=== PATIENT | male | born 1955 | race Two or more races ===

== ENCOUNTER → 2019-03-18 | Outpatient (CLI) | payer OTHER ==
[~2019-03-18] MED LIST: LOVA40TA2 PO; PANT40TA5 PO
[2019-03-18 08:45] LABS: INTERNATIONAL NORMALIZED RATIO 0.95 (0.93-1.1)
[2019-03-18 08:47] LABS: ALANINE AMINOTRANSFERASE 31 U/L (12-78); ALBUMIN 3.9 g/dL (3.4-5.0); ANION GAP 6 mmol/L (5-15); CHLORIDE 107 mmol/L (98-107); CREATININE 0.94 mg/dL (0.7-1.3); MEAN CORPUSCULAR HEMOGLOBIN 30.1 pg (27.5-34.5); MEAN CORPUSCULAR HGB CONC 33.5 g/dL (33.2-36.2); MEAN CORPUSCULAR VOLUME 90.1 fL (81-97); PLATELET COUNT 287 x10^3/uL (130-400); RED BLOOD COUNT 5.23 x10^6/uL (4.38-5.82); RED CELL DISTRIBUTION WIDTH 14.2 % (9.4-14.8)
[2019-03-18 08:50] LABS: ALKALINE PHOSPHATASE 109 U/L (45-117); BILIRUBIN,TOTAL 0.9 mg/dL (0.2-1.0); TOTAL PROTEIN 7.7 g/dL (6.4-8.2)
[2019-03-18 09:05] LABS: MICROSCOPIC NOT IND
[2019-03-18 09:15] LABS: BASOPHILS # (AUTO) 0.04 x10^3/uL (0-0.1); BASOPHILS % (AUTO) 1 % (0-1); EOSINOPHILS # (AUTO) 0.19 x10^3/uL (0-0.4); EOSINOPHILS % (AUTO) 2 % (1-7); LYMPHOCYTES # (AUTO) 1.97 x10^3/uL (1-3.4); LYMPHOCYTES % (AUTO) 23 % (22-44); MD SCAN; MONOCYTES # (AUTO) 0.55 x10^3/uL (0.2-0.8); MONOCYTES % (AUTO) 7 % (2-9); NEUTROPHILS # (AUTO) 5.75 x10^3/uL (1.8-6.8); NEUTROPHILS % (AUTO) 68 % (42-75)
== END | disposition home or self-care (01) ==
LOC: STAR 07:25
PROVIDERS: ATTEND Student in an Organized Health Care Education/Training Program
DX: Z01.818 Encounter for other preprocedural examination (principal); C61 Malignant neoplasm of prostate; Z87.891 Personal history of nicotine dependence
CPT/HCPCS: 36415; 80053; 81003; 85025; 85610; 87086; 93005

== ENCOUNTER 2019-03-31 08:09 | Observation (INO) | payer OTHER ==
[~2019-03-31] VITALS: Ht 180.3 cm; Wt 92.2 kg
[2019-03-31] MEDS ORDERED: LACTATED RINGERS 1,000 ML IV SCH (08:37)
[2019-03-31 08:42] VITALS: BP 133/96
[2019-03-31] MEDS ORDERED: BUPIVACAINE/PF 0.25% ONE ×2 (11:00→11:05)
[2019-03-31] MEDS ORDERED: THROMBIN SPRAY 20,000 UNIT SPRAY TP ONE ×2 (11:01→11:06)
[2019-03-31] MEDS ORDERED: EPINEPHRINE 1 MG/ML, 1ML ONE ×2 (11:01→11:06)
[2019-03-31] MEDS ORDERED: INDIGO CARMINE 0.8%, 5ML ONE ×2 (11:01→11:05)
[2019-03-31] MEDS ORDERED: OPIUM/BELLADONNA SUPP.RECT 16.2-60 MG ONE (11:06)
[2019-03-31] MEDS ORDERED: SCOPOLAMINE PATCH, 1.5MG PATCH.TD72 TD ONE ×2 (11:13→11:20)
[2019-03-31] MEDS ORDERED: GABAPENTIN 300 MG CAPSULE ONE ×2 (11:13→11:20)
[2019-03-31] MEDS ORDERED: MIDAZOLAM 1 MG/ML, 2ML ONE (11:34)
[2019-03-31] MEDS ORDERED: FENTANYL PF 250 MCG/5ML ONE (11:34)
[2019-03-31] MEDS ORDERED: CEFOTETAN PMX 2GM/50ML 50 ML ONE (14:07)
[2019-03-31] MEDS ORDERED: ROCURONIUM 10MG/ML,5ML ONE ×2 (14:07→16:15)
[2019-03-31] MEDS ORDERED: PROPOFOL 10 MG/ML, 20ML ONE (14:07)
[2019-03-31] MEDS ORDERED: ONDANSETRON 2MG/ML, 2ML ONE (14:07)
[2019-03-31] MEDS ORDERED: LIDOCAINE-MPF 2% ,5ML ONE (14:07)
[2019-03-31] MEDS ORDERED: DEXAMETHASONE 4 MG/ML, 1ML ONE (14:07)
[2019-03-31] MEDS ORDERED: MEPERIDINE/PF 100 MG/ML ONE (14:07)
[2019-03-31] MEDS ORDERED: PROMETHAZINE 25 MG/ML, 1ML IV PRN (14:30)
[2019-03-31] MEDS ORDERED: MEPERIDINE/PF 25MG/ML,1ML IVPush PRN (14:30)
[2019-03-31] MEDS ORDERED: METHOCARBAMOL 1,000 MG in DEXTROSE 5% 100 ML IV PRN (14:30)
[2019-03-31] MEDS ORDERED: hydrALAzine 20 MG/ML, 1ML IV PRN (14:30)
[2019-03-31] MEDS ORDERED: OXYcodone 5 MG/5 ML ORAL.SOL UDC PO PRN ×2 (14:30→18:00)
[2019-03-31] MEDS ORDERED: ACETAMINOPHEN 325 MG TABLET PO PRN (14:30)
[2019-03-31] MEDS ORDERED: FENTANYL PF 100 MCG/2ML IV PRN (14:30)
[2019-03-31] MEDS ORDERED: HYDROmorphone 2 MG/ML, 1ML IVPush PRN (14:30)
[2019-03-31] MEDS ORDERED: SUGAMMADEX 200 MG/2 ML IVPush ONE (16:16)
[2019-03-31] MEDS ORDERED: MEPERIDINE/PF 50 MG/ML ONE ×2 (16:17→17:44)
[2019-03-31] MEDS ORDERED: ONDANSETRON 2MG/ML, 2ML IV PRN (18:00)
[2019-03-31] MEDS ORDERED: HYDROmorphone 1 MG/ML, 1ML INJ IV PRN (18:00)
[2019-03-31] MEDS ORDERED: OXYcodone 5 MG/5 ML ORAL.SOL UDC ONE (18:35)
[2019-03-31] MEDS ORDERED: FENTANYL PF 100 MCG/2ML ONE (18:35)
[2019-03-31 18:42] LABS: ALBUMIN 3.3 g/dL (3.4-5.0); ANION GAP 6 mmol/L (5-15); CALCIUM 8.2 mg/dL (8.5-10.1); CHLORIDE 109 mmol/L (98-107)
[2019-03-31] MEDS: SODIUM CHLORIDE 0.9% 1,000 ML IV SCH (22:59)
[2019-03-31] MEDS: DOCUSATE 100 MG CAPSULE PO SCH (22:59)
[2019-03-31] MEDS: ACETAMINOPHEN 325 MG TABLET PO SCH (23:00)
[2019-03-31] MEDS: CEFAZOLIN PMX 1GM/50ML 50 ML IVPB SCH (23:28)
[2019-04-01 00:03] VITALS: BP 125/80
[2019-04-01 04:01] VITALS: BP 126/75
[2019-04-01] MEDS: ACETAMINOPHEN 325 MG TABLET PO SCH ×2 (05:18→11:59)
[2019-04-01 05:41] LABS: ANION GAP 7 mmol/L (5-15); CALCIUM 7.9 mg/dL (8.5-10.1); CHLORIDE 107 mmol/L (98-107)
[2019-04-01] MEDS ORDERED: PANTOPROZOLE 40MG TABLET PO SCH (06:00)
[2019-04-01] MEDS: SODIUM CHLORIDE 0.9% 1,000 ML IV SCH ×2 (06:32→14:30)
[2019-04-01] MEDS: CEFAZOLIN PMX 1GM/50ML 50 ML IVPB SCH (06:32)
[2019-04-01 07:58] VITALS: BP 121/74
[2019-04-01] MEDS: DOCUSATE 100 MG CAPSULE PO SCH (08:05)
[2019-04-01] MEDS: HEPARIN 5,000 UNITS/ML, 1ML SQ SCH ×2 (08:05→16:00)
[2019-04-01] MEDS ORDERED: POLYETHYLENE GLYCOL 17 GM PACKET PO SCH ×2 (09:00)
[2019-04-01 14:00] VITALS: BP 139/83
[2019-04-01] MEDS ORDERED: HYDR-3240 PO (16:39)
[2019-04-01] MEDS ORDERED: LOVASTATIN 40 MG TABLET PO SCH (21:00)
== END 2019-04-01 17:23 | disposition home or self-care (01) ==
LOC: OUT 08:09 → 4NE 20:55 → OUT 20:57 → 4NE 20:58 → DCLOUNGE 04-01 17:23
PROVIDERS: ADMIT Student in an Organized Health Care Education/Training Program; ATTEND Student in an Organized Health Care Education/Training Program
DX: C61 Malignant neoplasm of prostate (principal); K21.9 Gastro-esophageal reflux disease without esophagitis; E78.5 Hyperlipidemia, unspecified; Z79.899 Other long term (current) drug therapy
CPT/HCPCS: 36415; 38571; 55866; 80048; 82040; 85014; 86850; 86900; 88305; 88309; 96365; 96366; 96372; C1729; G0378; J0171; J0690; J1100; J1644; J2175; J2250; J2405; J2704; J3010; J3490; J7030; J7120

== ENCOUNTER 2019-04-09 20:53 | Emergency (ER) | payer OTHER ==
[~2019-04-09] VITALS: Ht 180.3 cm; Wt 86.5 kg
[~2019-04-09 20:53] MED LIST changes: +HYDR-3240 PO
--- NOTE | 2019-04-09 21:29 | NUR ---
63Y M BIB EMS FOR SUDDEN ONSET 1010 BILAT LOWER ABD PAIN. PROSTECTOMY 03/31. PT WAS GIVEN 100 FET AND 1MG OF MORPHINE STEAM PIPE FITTER. PT CONNECTED TO MONITORING VSS. AT BEDSIDE. SHANE
[2019-04-09] MEDS ORDERED: SODIUM CHLORIDE FLUSH 10ML SYR IVF ONE (21:30)
[2019-04-09 21:32] LABS: BASOPHILS # (AUTO) 0.04 x10^3/uL (0-0.1); BASOPHILS % (AUTO) 0 % (0-1); EOSINOPHILS # (AUTO) 0.38 x10^3/uL (0-0.4); EOSINOPHILS % (AUTO) 4 % (1-7); LYMPHOCYTES # (AUTO) 1.29 x10^3/uL (1-3.4); LYMPHOCYTES % (AUTO) 13 % (22-44); MD NO; MEAN CORPUSCULAR HEMOGLOBIN 30.7 pg (27.5-34.5); MEAN CORPUSCULAR HGB CONC 33.3 g/dL (33.2-36.2); MEAN CORPUSCULAR VOLUME 92.2 fL (81-97); MEAN PLATELET VOLUME 7.7 fL (7.4-10.4); MONOCYTES % (AUTO) 7 % (2-9); NEUTROPHILS % (AUTO) 77 % (42-75); PLATELET COUNT 359 x10^3/uL (130-400); RED BLOOD COUNT 4.21 x10^6/uL (4.38-5.82); RED CELL DISTRIBUTION WIDTH 14.2 % (9.4-14.8)
[2019-04-09 21:44] LABS: ALBUMIN 3.1 g/dL (3.4-5.0); ANION GAP 6 mmol/L (5-15); CALCIUM 8.2 mg/dL (8.5-10.1); CHLORIDE 107 mmol/L (98-107)
[2019-04-09] MEDS ORDERED: OMNIPAQUE 350 MG/ML, 100ML BOTTLE ONE (22:00)
--- NOTE | 2019-04-09 22:22 | NUR ---
ALL RESULTS BACK AT THIS TIME CHART UP FOR RECHECK
[2019-04-09 22:54] LABS: MICROSCOPIC INDICATED
[2019-04-09 23:00] LABS: CULTURE INDICATED? NO
[2019-04-09] MEDS ORDERED: MAGNESIUM SULFATE PMX 2GM/50ML 50 ML IV ONE (23:30)
[2019-04-09] MEDS ORDERED: POTASSIUM CHLORIDE 20 MEQ TAB.ER.PRT PO ONE (23:30)
[2019-04-09] MEDS ORDERED: POTASSIUM CHLORIDE 40 MEQ in SODIUM CHLORIDE 0.9% 500 ML IV ONE (23:30)
[2019-04-09 23:38] VITALS: BP 114/72
[2019-04-09] MEDS ORDERED: POTASSIUM CHLORIDE 20 MEQ TAB.ER.PRT ONE (23:52)
[2019-04-09] MEDS ORDERED: MAGNESIUM SULFATE PMX 2GM/50ML 50 ML ONE (23:52)
--- NOTE | 2019-04-09 23:59 | NUR ---
PT MEDICATED PER MAR. SHNAE AMBROSE CALL LIGHT IN REACH AT BEDSIDE
--- NOTE | 2019-04-10 01:00 | NUR ---
LAB CALLED TO FOLLOW UP ON REPEAT BMP
[2019-04-10 01:16] LABS: ANION GAP 5 mmol/L (5-15); CHLORIDE 106 mmol/L (98-107); CREATININE 0.93 mg/dL (0.7-1.3)
== END 2019-04-10 02:03 | disposition home or self-care (01) ==
LOC: ED 21:25
DX: R31.0 Gross hematuria (principal); E87.6 Hypokalemia; K21.9 Gastro-esophageal reflux disease without esophagitis; E78.5 Hyperlipidemia, unspecified
CPT/HCPCS: 36415; 74177; 80048; 81001; 82040; 85025; 93005; 96365; 96366; 96368; 99284; J3475; J3480; J7040; Q9967